=== PATIENT | female | born 1970 ===

== ENCOUNTER 2019-08-07 02:20 | Emergency (ER) | payer SELFPAY ==
[~2019-08-07] VITALS: Ht 154.9 cm
[2019-08-07] MEDS ORDERED: ALBUTEROL/IPRATROPIUM 2.5MG/0.5MG, 3 ML ONE (02:47)
[2019-08-07] MEDS ORDERED: ALBUTEROL/IPRATROPIUM 2.5MG/0.5MG, 3 ML NPPB ONE (03:00)
[2019-08-07 03:39] VITALS: BP 154/82
== END 2019-08-07 03:49 | disposition home or self-care (01) ==
LOC: ED 03:14
DX: J45.901 Unspecified asthma with (acute) exacerbation (principal); R00.0 Tachycardia, unspecified; I10 Essential (primary) hypertension
CPT/HCPCS: 71046; 93005; 94640; 99283; J7512

== ENCOUNTER 2019-08-09 07:07 | Emergency (ER) | payer SELFPAY ==
[~2019-08-09] VITALS: Ht 154.9 cm; Wt 89.8 kg
--- NOTE | 2019-08-09 07:38 | NUR ---
TASK RN. PT STATES INCREASING SOB SINCE THURSDAY R/T ASTHMA. PT SEEN IN ER ON THURSDAY, AND WAS UNABLE TO FILL SCRIPT FOR STERIODS AND INHAILER UNTILL THIS AM. PT IS CURRENLY PROTECTING OWN AIRWAY WELL, HOWEVER BREATHING IS SLIGHTLY LABORED. PT REMAINS ABLE TO SPEAK IN FULL SENTANCES. PT PLACED ON 2L O2 TO ASSIST WITH SLIGHLY LABORED BREAHING, TOLERATING WELL. LING SOUNDS, WHEEZES THROUGHOUT. PT PLACED ON MONITORS, VSS. AWAITING ERMD ASSESSMENT.
[2019-08-09] MEDS ORDERED: ALBUTEROL/IPRATROPIUM 2.5MG/0.5MG, 3 ML NPPB ONE ×2 (08:00→09:30)
[2019-08-09] MEDS ORDERED: MONTELUKAST 10 MG TABLET PO ONE (08:00)
[2019-08-09] MEDS ORDERED: ALBUTEROL/IPRATROPIUM 2.5MG/0.5MG, 3 ML ONE (08:02)
--- NOTE | 2019-08-09 08:22 | NUR ---
PHARMACY REQUEST SLIP SENT TO LAB FOR GASTON.
[2019-08-09 09:00] VITALS: BP 172/102
--- NOTE | 2019-08-09 09:00 | NUR ---
PT MEDICATED WITH SINGULAIR. DR. MOSS AT AT BEDSIDE. REFERRAL GIVEN FOR PCP.
== END 2019-08-09 11:04 | disposition home or self-care (01) ==
LOC: ED 07:52
DX: J45.909 Unspecified asthma, uncomplicated (principal); R07.9 Chest pain, unspecified
CPT/HCPCS: 71045; 93005; 94640; 99283; J7512